=== PATIENT | female | born 1960 | race Caucasian/White ===

== ENCOUNTER → 2017-12-15 | Outpatient (CLI) | payer OTHER ==
[~2017-12-15] VITALS: Ht 160 cm; Wt 81.7 kg
[~2017-12-15] MED LIST: ACID REDUCER150 MG PO; BENTYL10 MG PO; DITROPAN XL10 MG PO; ENABLEX15 MG PO; ESTROVEN ENERG1 EACH PO; GLUCOSAMINE-CH1 EA44 PO; MACRODANTIN50 M1 PO; MAGNESIUM250 M1 PO; MAGNESIUM250 MG PO; METOPROLOL TART25 MG PO; MICROZIDE12.5 M1 PO; SIMVASTATIN40 MG PO; SINGULAIR10 MG PO; VITAMIN D31000 UNIT PO; VITAMIN D32000 UNI1 PO; ZOFRAN4 MG PO; ZYRTEC10 M2 PO
== END | disposition home or self-care (01) ==
LOC: AMB 09:23
PROC: 0DJD8ZZ Inspection of Lower Intestinal Tract, Via Natural or Artificial Opening Endoscopic (ICD-10-PCS; principal; 2017-12-15)
DX: Z12.11 Encounter for screening for malignant neoplasm of colon (principal); K57.30 Diverticulosis of large intestine without perforation or abscess without bleeding; Z80.0 Family history of malignant neoplasm of digestive organs; K59.00 Constipation, unspecified; Z86.010 Personal history of colon polyps; K21.9 Gastro-esophageal reflux disease without esophagitis; E78.5 Hyperlipidemia, unspecified; E66.9 Obesity, unspecified; Z83.42 Family history of familial hypercholesterolemia; Z82.49 Family history of ischemic heart disease and other diseases of the circulatory system; Z88.2 Allergy status to sulfonamides
CPT/HCPCS: J2405